=== PATIENT | male | born 1965 | race Caucasian/White ===

== ENCOUNTER 2016-05-27 05:44 | Day surgery (SDC) | payer BC ==
[~2016-05-27] VITALS: Ht 170.2 cm; Wt 76.2 kg
[~2016-05-27 05:44] MED LIST: ASPI-664 PO; LEVO25TA53 PO; RANI150T9 PO
[2016-05-27 06:57] VITALS: Ht 170.2 cm; Wt 76.2 kg
[2016-05-27 06:59] VITALS: BP 127/65; PULSE 62; RESP 20
[2016-05-27] MEDS ORDERED: MIDAZOLAM 1 MG/ML 2 ML INJ ONE ×3 (07:45)
[2016-05-27] MEDS ORDERED: FENTAnyl 50 MCG/ML VIAL ONE (07:45)
[2016-05-27 08:12] VITALS: BP 99/59; PULSE 67; RESP 14
--- NOTE | 2016-05-27 14:53 | GILP ---
DATE OF PROCEDURE: NAME OF PROCEDURE: Esophagogastroduodenoscopy and biopsy. SURGEON: Marce Kimball MD PREOPERATIVE DIAGNOSIS: Abdominal pain. POSTOPERATIVE DIAGNOSES: 1. Gastritis with erosions. 2. Biopsy was positive for Helicobacter pylori infection. INDICATION FOR THE PROCEDURE: Mr. Collin Gill is a 51-year-old male patient who had upper abdom inal pain not responding to therapy. The [facility]. The procedure and possible complications were well explained to the patient, he understood and conse nted to the procedure. DESCRIPTION OF PROCEDURE: Under the influence of fentanyl and Versed, the gastroscope was carefully introduced into the esophagus and under direct vision, it was advanced to the stomach and through t he pylorus into the duodenal bulb and descending duodenum. FINDINGS: ESOPHAGUS: The mucosa was normal. STOMACH: The patient had gastritis. Biopsy was positive for Helicobacter pylori infection. DUODENUM: Normal. The patient tolerated the procedure very well and there was no complication from the procedure. At the end of the procedure, he was awake with stable vital signs and he was discharged home to the car e of his family. IMPRESSION: 1. Gastritis with erosions. 2. Gastric mucosal biopsies positive for Helicobacter pylori infection. PLAN: 1. Zantac 300 mg p.o. b.i.d. 2. Doxycycline 100 mg p.o. b.i.d. 3. Flagyl 500 mg p.o. b.i.d. 4. Pepto-Bismol 2 tablets p.o. q.i.d. All the 4 medications for 14 days for H pylori infection. Dictated By: MARCE WEAVER/MICHELLE Conf#: [id number] DID#: [id number]
== END 2016-05-27 10:49 | disposition home or self-care (01) ==
LOC: GIL 05:44
PROVIDERS: ATTEND Internal Medicine Gastroenterology
DX: K29.60 Other gastritis without bleeding (principal); B96.81 Helicobacter pylori [H. pylori] as the cause of diseases classified elsewhere
CPT/HCPCS: 43239; J2250; J3010

== ENCOUNTER → 2016-06-24 | Outpatient (CLI) | payer BC ==
[~2016-06-24] MED LIST changes: -ASPI-664 PO; -RANI150T9 PO
[2016-06-24 16:34] LABS: ADD SCAN DIFF NO
[2016-06-24 16:48] LABS: BASOPHILS % 0.3 % (0.0-2.0); EOSINOPHILS # 0.1 10^3/ul (0.0-0.5); EOSINOPHILS % 1.4 % (0.0-7.0); HEMATOCRIT 43.6 % (42.0-52.0); HEMOGLOBIN 14.8 g/dl (14.0-18.0); LYMPHOCYTES # 1.8 10^3/ul (0.8-2.9); LYMPHOCYTES % 27.9 % (15.0-51.0); MEAN CORPUSCULAR HEMOGLOBIN 31.2 pg (29.0-33.0); MEAN CORPUSCULAR HGB CONC 33.9 g/dl (32.0-37.0); MEAN CORPUSCULAR VOLUME 91.8 fl (82.0-101.0); MEAN PLATELET VOLUME 10.1 fl (7.4-10.4); MONOCYTE # 0.4 10^3/ul (0.3-0.9); MONOCYTES % 5.9 % (0.0-11.0); NEUTROPHIL # 4.1 10^3/ul (1.6-7.5); NEUTROPHILS % 64.2 % (39.0-77.0); PLATELET COUNT 192 10^3/UL (140-415); RED BLOOD COUNT 4.75 10^6/ul (4.70-6.10); RED CELL DISTRIBUTION WIDTH 11.5 % (11.5-14.5); WHITE BLOOD COUNT 6.5 10^3/ul (4.8-10.8)
[2016-06-24 16:49] LABS: ALBUMIN 4.4 g/dl (3.3-4.9)
[2016-06-24 16:52] LABS: ALBUMIN/GLOBULIN RATIO 1.33; BILIRUBIN,INDIRECT 0.5 mg/dl (0-1.1); BILIRUBIN,TOTAL 0.5 mg/dl (0.2-1.3); CREATININE 0.85 mg/dl (0.61-1.24); TOTAL PROTEIN 7.7 g/dl (6.1-8.1)
[2016-06-24 16:53] LABS: CALCIUM 9.5 mg/dl (8.4-10.2); MAGNESIUM 1.9 mg/dl (1.7-2.5)
[2016-06-24 17:30] LABS: FREE T3 4.57 pg/ml (2.77-5.27)
[2016-06-24 17:51] LABS: THYROID STIMULATING HORMONE 2.98 MIU/L (0.465-4.680)
[2016-06-29 16:27] LABS: FREE TESTOSTERONE 48.4 pg/mL (35.0-155.0); TESTOSTERONE, TOTAL 401 ng/dL (250-1100)
== END | disposition home or self-care (01) ==
LOC: LAB 16:17
PROVIDERS: ATTEND Internal Medicine
DX: E03.9 Hypothyroidism, unspecified (principal)
CPT/HCPCS: 80053; 82306; 83735; 84403; 84439; 84443; 84481; 85025

== ENCOUNTER → 2016-07-29 | Outpatient (CLI) | payer BC ==
[2016-07-29 16:19] LABS: ADD SCAN DIFF NO
[2016-07-29 16:28] LABS: BASOPHILS % 0.4 % (0.0-2.0); EOSINOPHILS # 0.1 10^3/ul (0.0-0.5); EOSINOPHILS % 0.6 % (0.0-7.0); HEMATOCRIT 43.2 % (42.0-52.0); HEMOGLOBIN 14.6 g/dl (14.0-18.0); LYMPHOCYTES % 24.3 % (15.0-51.0); MEAN CORPUSCULAR HEMOGLOBIN 31.2 pg (29.0-33.0); MEAN CORPUSCULAR HGB CONC 33.8 g/dl (32.0-37.0); MEAN CORPUSCULAR VOLUME 92.3 fl (82.0-101.0); MEAN PLATELET VOLUME 9.7 fl (7.4-10.4); MONOCYTE # 0.6 10^3/ul (0.3-0.9); MONOCYTES % 6.8 % (0.0-11.0); NEUTROPHIL # 5.7 10^3/ul (1.6-7.5); NEUTROPHILS % 67.8 % (39.0-77.0); PLATELET COUNT 189 10^3/UL (140-415); RED BLOOD COUNT 4.68 10^6/ul (4.70-6.10); RED CELL DISTRIBUTION WIDTH 11.9 % (11.5-14.5); WHITE BLOOD COUNT 8.4 10^3/ul (4.8-10.8)
[2016-07-29 16:37] LABS: ALBUMIN 4.6 g/dl (3.3-4.9)
[2016-07-29 16:39] LABS: BILIRUBIN,INDIRECT 0.7 mg/dl (0-1.1); BILIRUBIN,TOTAL 0.7 mg/dl (0.2-1.3)
[2016-07-29 16:41] LABS: TOTAL PROTEIN 7.8 g/dl (6.1-8.1)
[2016-08-03 10:53] LABS: FREE TESTOSTERONE 63.1 pg/mL (35.0-155.0)
== END | disposition home or self-care (01) ==
LOC: LAB 16:09
PROVIDERS: ATTEND Internal Medicine
DX: Z01.89 Encounter for other specified special examinations (principal)
CPT/HCPCS: 80076; 84403; 85025

== ENCOUNTER → 2016-09-01 | Outpatient (CLI) | payer BC | END | disposition home or self-care (01) | LOC: LAB 10:59 | PROVIDERS: ATTEND Internal Medicine | DX: E29.1 Testicular hypofunction (principal) | CPT/HCPCS: 84403 ==

== ENCOUNTER → 2016-09-05 | Outpatient (CLI) | payer BC | END | disposition home or self-care (01) | LOC: LAB 16:39 | PROVIDERS: ATTEND Internal Medicine | DX: E29.1 Testicular hypofunction (principal) | CPT/HCPCS: 84403 ==

== ENCOUNTER → 2016-11-28 | Outpatient (CLI) | payer BC ==
[2016-11-28 16:02] LABS: BASOPHILS % 0.2 % (0.0-2.0); EOSINOPHILS # 0.2 10^3/ul (0.0-0.5); EOSINOPHILS % 2.5 % (0.0-7.0); HEMATOCRIT 42.7 % (42.0-52.0); HEMOGLOBIN 14.9 g/dl (14.0-18.0); LYMPHOCYTES # 2.1 10^3/ul (0.8-2.9); LYMPHOCYTES % 34.6 % (15.0-51.0); MEAN CORPUSCULAR HEMOGLOBIN 30.6 pg (29.0-33.0); MEAN CORPUSCULAR HGB CONC 34.9 g/dl (32.0-37.0); MEAN CORPUSCULAR VOLUME 87.7 fl (82.0-101.0); MONOCYTE # 0.5 10^3/ul (0.3-0.9); MONOCYTES % 7.6 % (0.0-11.0); NEUTROPHIL # 3.4 10^3/ul (1.6-7.5); NEUTROPHILS % 54.9 % (39.0-77.0); PLATELET COUNT 169 10^3/UL (140-415); RED BLOOD COUNT 4.87 10^6/ul (4.70-6.10); RED CELL DISTRIBUTION WIDTH 11.7 % (11.5-14.5); WHITE BLOOD COUNT 6.1 10^3/ul (4.8-10.8)
[2016-11-28 16:28] LABS: ALBUMIN 4.4 g/dl (3.3-4.9); ALBUMIN/GLOBULIN RATIO 1.33; BILIRUBIN,INDIRECT 0.6 mg/dl (0-1.1); BILIRUBIN,TOTAL 0.6 mg/dl (0.2-1.3); CALCIUM 9.2 mg/dl (8.4-10.2); CREATININE 0.81 mg/dl (0.61-1.24); TOTAL PROTEIN 7.7 g/dl (6.1-8.1)
[2016-11-28 16:46] LABS: FREE T3 4.57 pg/ml (2.77-5.27)
[2016-11-28 17:00] LABS: THYROID STIMULATING HORMONE 2.32 MIU/L (0.465-4.680)
== END | disposition home or self-care (01) ==
LOC: LAB 15:34
PROVIDERS: ATTEND Internal Medicine
DX: E03.9 Hypothyroidism, unspecified (principal)
CPT/HCPCS: 80053; 82652; 84403; 84439; 84443; 84481; 85025

== ENCOUNTER → 2017-03-04 | Outpatient (CLI) | payer BC ==
[2017-03-04 10:12] LABS: BASOPHILS % 0.2 % (0.0-2.0); EOSINOPHILS # 0.1 10^3/ul (0.0-0.5); EOSINOPHILS % 1.6 % (0.0-7.0); HEMATOCRIT 44.9 % (42.0-52.0); HEMOGLOBIN 15.1 g/dl (14.0-18.0); LYMPHOCYTES # 2.3 10^3/ul (0.8-2.9); LYMPHOCYTES % 26.5 % (15.0-51.0); MEAN CORPUSCULAR HGB CONC 33.6 g/dl (32.0-37.0); MEAN CORPUSCULAR VOLUME 92.2 fl (82.0-101.0); MEAN PLATELET VOLUME 9.9 fl (7.4-10.4); MONOCYTE # 0.7 10^3/ul (0.3-0.9); MONOCYTES % 8.6 % (0.0-11.0); NEUTROPHIL # 5.4 10^3/ul (1.6-7.5); NEUTROPHILS % 62.7 % (39.0-77.0); PLATELET COUNT 169 10^3/UL (140-415); RED BLOOD COUNT 4.87 10^6/ul (4.70-6.10); RED CELL DISTRIBUTION WIDTH 11.8 % (11.5-14.5); WHITE BLOOD COUNT 8.6 10^3/ul (4.8-10.8)
[2017-03-04 10:30] LABS: ALBUMIN 4.1 g/dl (3.3-4.9); ALBUMIN/GLOBULIN RATIO 1.32; BILIRUBIN,INDIRECT 0.6 mg/dl (0-1.1); BILIRUBIN,TOTAL 0.6 mg/dl (0.2-1.3); CALCIUM 8.7 mg/dl (8.4-10.2); CREATININE 0.85 mg/dl (0.61-1.24); POTASSIUM 3.8 mmol/L (3.5-5.1); TOTAL PROTEIN 7.2 g/dl (6.1-8.1)
[2017-03-04 12:06] LABS: FREE T3 4.41 pg/ml (2.77-5.27)
[2017-03-04 12:19] LABS: PROSTATE SPECIFIC ANTIGEN 1.3 ng/ml (0.0-4.0); THYROID STIMULATING HORMONE 3.74 MIU/L (0.465-4.680)
== END | disposition home or self-care (01) ==
LOC: LAB 09:49
PROVIDERS: ATTEND Internal Medicine
DX: E03.9 Hypothyroidism, unspecified (principal)
CPT/HCPCS: 80053; 84153; 84154; 84403; 84439; 84443; 84481; 85025

== ENCOUNTER → 2017-06-23 | Outpatient (CLI) | END | disposition home or self-care (01) ==

== ENCOUNTER → 2017-10-13 | Outpatient (CLI) | END | disposition home or self-care (01) ==

== ENCOUNTER → 2018-01-18 | Outpatient (CLI) | END | disposition home or self-care (01) ==

== ENCOUNTER → 2018-05-19 | Outpatient (CLI) | payer BC ==
[~2018-05-19] MED LIST changes: -LEVO25TA53 PO; +LEVO25TA6 PO
== END | disposition home or self-care (01) ==
LOC: LAB 09:00
PROVIDERS: ATTEND Internal Medicine
DX: E03.9 Hypothyroidism, unspecified (principal); E29.1 Testicular hypofunction
CPT/HCPCS: 80053; 84153; 84154; 84403; 84439; 84443; 84481; 85025

== ENCOUNTER → 2018-08-25 | Outpatient (CLI) | payer BC | END | disposition home or self-care (01) | LOC: LAB 08:53 | PROVIDERS: ATTEND Internal Medicine | DX: E03.9 Hypothyroidism, unspecified (principal); E29.1 Testicular hypofunction | CPT/HCPCS: 80053; 84153; 84154; 84403; 84436; 84439; 84443; 84479; 85025 ==

== ENCOUNTER → 2018-09-14 | Outpatient (CLI) | payer BC | END | disposition home or self-care (01) | LOC: LAB 12:03 | PROVIDERS: ATTEND Internal Medicine | DX: N39.0 Urinary tract infection, site not specified (principal); E78.5 Hyperlipidemia, unspecified | CPT/HCPCS: 80053; 80061; 81001; 85025; 87086 ==